=== PATIENT | female | born 1990 | race Caucasian/White ===

== ENCOUNTER 2016-05-20 12:40 | Inpatient (IN) ==
[2016-05-20 14:25] LABS: Bilirubin,Urine Negative (Negative); Blood,Urine Negative (Negative); Clarity,Urine Cloudy (Clear); Color,Urine Yellow (Yellow); Glucose,Urine (UA) Normal (Normal); Ketones,Urine 40 mg/dL (Negative); Leukocyte Esterase,Urine Moderate (Negative); Nitrite,Urine Negative (Negative); PH,Urine 7.5 pH Units (5.0-8.0); Protein,Urine Trace mg/dL (Neg-Trace); Specific Gravity,Urine 1.017 (1.010-1.025); Urobilinogen,Urine Normal (Normal)
[2016-05-20 14:42] LABS: RBC,Urine 0-3 per hpf (0-3)
[2016-05-20 14:43] LABS: Bacteria,Urine Few per hpf (None-Few); Squamous Epithelial Cell,Urine Few per lpf (None-Few)
--- NOTE | 2016-05-20 15:24 | OB/GYN History & Physical ---
Date of Encounter: 05/20/16 Time of Encounter: 15:22 Assessment and Plan (1) 39 weeks gestation of Current visit: Yes Status: Acute Observation for labor Admit if cervical changes discharge home if no cervical changes. History of Present Illness Chief complaint: Contractions HPI: Ms. Mackenzie is a 25 year old female at 39w5d present to labor and delivery with complaints of contractions and bloody discharge. Patient states she has had nausea and vomiting since last night but is feeling better now. Denies LOF. Reports +FM. Patient reports she was dilated 1cm on the . Blood type: A+. Rubella: Immune, Hep B: nonreactive, GBS: Negative. Past Med Surg Social Fam HX - Past Medical History Source: patient Medical history: other Psychiatric history: no psych history - Past Surgical History Surgical History: other (uterus 01/2013) - Social History Smoking Status: Never smoker Smokeless Tobacco Status: No Alcohol use: none Drug use: none Current living situation: Home - Independent Activity Level: Independent ambulation Recent Out of Country Travel Within the Last 8 Weeks: No - Family History Grandmother Living Status: Hx Family Cardiac Disorders: No Hx Family Respiratory Disorders: Yes (lung cancer, copd) Hx Family Cancer: Yes (lung, aunt had lung cancer also-still living) Hx Family GI Disorders: No Hx Family Endocrine Disorder: No Hx Family Neuromuscular Disorders: No Hx Family Neurologic Disorders: No Hx Family HEENT Disorders: No Hx Family Autoimmune Disorders: No Obstetrical History - Pregnancies : 3 Para: 3 Term: 3 : 0 Ab's: 0 Livin Medications and Allergies Caplet 1 tab PO DAILY 04/16/16 [History] Promethazine [Phenergan] 1 tab PO Q6HR PRN 04/16/16 [History] Allergies sulfamethoxazole [From Bactrim] Allergy (Verified 05/20/16 13:01) Anaphylaxis trimethoprim [From Bactrim] Allergy (Verified 05/20/16 13:01) Anaphylaxis Review of System OB - Constitutional Constitutional ROS IM: no chills, no fever(s), no headache(s) - Cardiovascular Cardiovascular: no chest pain, no lightheadedness, no palpitations, no pedal edema - Respiratory Respiratory: no dyspnea - Gastrointestinal Gastrointestinal: nausea, vomiting, no abdominal pain, no constipation, no diarrhea, no heartburn - Genitourinary Genitourinary: vaginal discharge, no abnormal vaginal bleeding, no dysuria, no flank pain, no urinary frequency, no urinary urgency, no vaginal odor, no vaginal pruritis - Neurological Nerological: no dizziness, no syncope Exam - Constitutional Constitutional: well developed, well nourished, no acute distress - HEENT HEENT: Normocephaly, Mucus Membranes Moist - Neck Neck exam: full ROM, supple - Lungs Respiratory exam: CTAB - Cardiovascular Cardiovascular exam: RRR, +S1, +S2 - Abdomen Abdomen: Present: bowel sounds normal, gravid, non tender - Extremities Extremities exam: normal capillary refill, normal inspection Deep Tendon Reflex Grade: 2+ Normal - Vagina Vagina: Present: normal moisture - Cervix Dilation: 3 (per RN) Effacement: 80 Station: -1 - Uterus Uterus exam: Present: normal size, normal contour - Anus/Rectum Anus/Rectum: Present: normal perianal skin - Comments Comments: FHR 125 bpm moderate variability +15x15 accels no decels noted. CAt. 1 tracing. Contractions every 1.5-2.5 min apart Results Abnormal lab results Urine Clarity Cloudy (Clear) A 05/20/16 14:05 Urine Ketones 40 mg/dL (Negative) H 05/20/16 14:05 Ur Leukocyte Esterase Moderate (Negative) H 05/20/16 14:05 Urine Microscopic WBC 3-5 per hpf (0-3) H 05/20/16 14:05 Ur Culture Indicated? YES (NO) A 05/20/16 14:05 All other labs normal. - VTE Reasons for not Prescribing Prophylaxis: Treatment not Indicated - Low risk for VTE
--- NOTE | 2016-05-20 16:13 | OB Labor Progress Note ---
Date of Encounter: 05/20/16 Time of Encounter: 16:10 Labor Progress Note - Subjective Subjective: Patient states contractions are still that she will have the occasional strong 1 but not anything timeable yet. - Cervix Cervix: 4/80/-1 - Heart Tones Heart Tones: heart tones 140s reactive - Hutton Hutton: Contractions every 2-3 minutes - Plan Plan: We will admit the patient we will allow the patient amulet for an hour and we will reassess.
[2016-05-20] MEDS ORDERED: Famotidine 20 MG/2 ML VIAL IVP PRN (16:14)
[2016-05-20] MEDS ORDERED: Naloxone 0.4 MG/ML INJ IVP PRN (16:14)
[2016-05-20] MEDS ORDERED: Ringers Solution, Lactated 1,000 ML IVC SCH (16:15)
[2016-05-20 17:41] LABS: Basophils % 0.3 %; Eosinophils % 0.4 %; Hematocrit 36.8 % (35.3-44.9); Hemoglobin 12.4 g/dL (11.5-15.4); Immature Granulocytes % 0.4 % (0-4); Mean Corpuscular HGB Conc 33.7 g/dL (31.6-35.5); Mean Corpuscular Hemoglobin 30.3 pg (28.0-33.3); Monocytes # 0.7 K/mcL (0.0-1.3); Monocytes % 7.2 %; Neutrophils # 7.2 K/mcL (1.6-8.9); Platelet Count 190 K/mcL (140-400); Red Blood Count 4.09 M/mcL (3.82-4.97); Red Cell Distribution Width 13.4 % (11.5-14.5); Segmented Neutrophils % 71.7 %
--- NOTE | 2016-05-20 19:51 | Anesthesia Evaluation PreOp ---
Date of Encounter: 05/20/16 Time of Encounter: 19:49 - Past History Planned Operation: labor epidural Cardiac History: Denies any Significant Hx Pulmonary History: Denies Any Significant HX NON FOOD RECEIVING CLERK History: Denies Any Significant HX Other Medical History: Denies Any Significant HX Anesthesia History: No Prior Anesthetic Complications, Past Anesthesia (robotic pelvic laparoscopy) : Yes Alcohol Use: none Drug use: none Medications and Allergies Caplet 1 tab PO DAILY 04/16/16 [History] Promethazine [Phenergan] 1 tab PO Q6HR PRN 04/16/16 [History] Allergies sulfamethoxazole [From Bactrim] Allergy (Verified 05/20/16 13:01) Anaphylaxis trimethoprim [From Bactrim] Allergy (Verified 05/20/16 13:01) Anaphylaxis - Meds/Allergy Pre-op Review Medications Reviewed: Yes Allergies Reviewed: Yes Beta Blockers on Current Med List: No Anesthesia Results - Labs 05/20/16 17:15 Anesthesia Exam 152/69, 86, 16, 98% Height: 5'4" NPO (# of Hours): 24 Pain Scale: 6 Pain Scale Used: Numeric (1 - 10) - HEENT Pupil (Motor): Pupils equal Mallampati: II Teeth: Normal Oral Opening: Greater than 3 - NON FOOD RECEIVING CLERK LOC: Oriented NON FOOD RECEIVING CLERK Motor: Normal RUE, Normal LUE, Normal RLE, Normal LLE, Normal Face NON FOOD RECEIVING CLERK Sensory: Normal: RUE, LUE, RLE, LLE, Face - Cardiac Rhythm: Regular Murmur: None - Pulmonary Breath Sounds: bilateral Clear Respiratory Effort: Symmetrical Anesthesia Assess/Plan ASA Score: 2 Modified [place] Scale for Level of Consciousness: Cooperative, oriented, and tranquil Anesthetic Plan: Regional Monitoring Plan: Standard Monitors
[2016-05-20] MEDS ORDERED: *HR* FentaNYL (PF) 100 MCG/2 ML VIAL EP ONE (19:54)
[2016-05-20] MEDS ORDERED: Bupivacaine-MPF 0.25% 10 ML VIAL EP ONE (19:54)
[2016-05-20] MEDS ORDERED: Epidural Premix (fent/bupiv) 110 ML EP SCH (20:00)
--- NOTE | 2016-05-20 20:25 | OB Labor Progress Note ---
Date of Encounter: 05/20/16 Time of Encounter: 20:25 Labor Progress Note - Subjective Subjective: Patient still tolerating contractions not ready for epidural yet - Cervix Cervix: 5/80/-2 AROM large amt clear fluid - Heart Tones Heart Tones: heart tones 140s reactive - Roland Roland: Contractions every 2-3 minutes - Plan Plan: Continue current care will get epidural when uncomfortable plan is to anticipate vaginal delivery
[2016-05-20] MEDS ORDERED: *HR* FentaNYL (PF) 100 MCG/2 ML VIAL ONE (20:45)
[2016-05-20] MEDS ORDERED: Bupivacaine-MPF 0.25% 10 ML VIAL ONE (20:45)
[2016-05-20] MEDS ORDERED: Epidural Premix (fent/bupiv) 110 ML EP ONE (20:46)
--- NOTE | 2016-05-20 21:59 | Anesthesia Procedures ---
Date of Encounter: 05/20/16 Time of Encounter: 21:10 Procedures: Anesthesia - Epidural/Spinal Patient ID/Chart reviewed: Yes Patient examined: Yes OB Eval: Gestational age: 39 OB Eval: : 3 OB Eval: Hx Para: 4 OB Eval: Dilated at (cm): 6 OB Eval: Contractions: Non-stressed pattern Consent Obtained: Yes Supplemental Oxygen: None/Room Air Site Prep: Aseptic Technique, Sterile prep and drape, Povidone-Iodine 1% Patient position: upright Local Anesthetic: Lidocaine 1% Amount of Local Anesthetic used: 6 Touhy Needle Gauge: 18 Touhy Needle Depth (cm): 7 Catheter Depth at Skin (cm): 18 Test Dose (1.5% Lido + Epi): Volume given (mls): 3 Test Dose Result: Negative Loading Dose: 0.25% Marcaine (mls): 8 Loading Dose: Fentanyl (mcg): 100 Loading Dose Administered: Thru Catheter Infusion Med: 0.125% Bupivacaine w/ 2 mcg/ml Fentanyl Infusion Rate (mls/hr): [address]: Tegaderm, Tape Interspace Used: L2-L3 Loss of Resistance (LAKSHMI): Yes Blood: No CSF: No Paresthesia: No Procedure: Attempted first at L3-4, easily entered epidural space but unable to thread catheter. Proceeded to L2-3, placed catheter with ease. Vitals + FHT's: 3 Vital Signs Time 21090 5 2130 2135 2140 2145 2150 BP 172/78 147/71 143/63 140/67 136/63 139/66 134/71 131/70 123/60 Pulse 110 70 97 69 88 100 96 78 82 FHTs 140 140 140 140 140 140 140 140 140
[2016-05-20] MEDS ORDERED: Oxytocin 20 units/ LR 1000 mL 20 UNIT/1,000 ML BAG IVC ONE (23:37)
[2016-05-21] MEDS ORDERED: Lidocaine 1% 20 ML MDV ONE (01:57)
[2016-05-21] MEDS ORDERED: Acetaminophen 325 MG TABLET PO PRN ×2 (02:04→04:23)
--- NOTE | 2016-05-21 02:22 | OB/GYN Procedure Note ---
Delivery - Delivery Date: 05/21/16 Provider: Ian Dubois Intrapartum events: none Delivery induction: none Delivery augmentation: rupture of membranes Delivery monitor: external FHT, external uterine Anesthesia: epidural Estimated Blood Loss: 100 - (s) Infant A Delivery Date: 05/21/16 Infant Delivery Time: 01:54 Presentation: vertex Position: PRANAV Route of delivery: Gender: Male Viability: Viable Pounds: 8 Ounces: 9 Weight Gram: 3.88 kg at 1 minute: 8 at 5 mins: 9 Shoulder Dystocia: not encountered Specimens collected: cord blood Placenta: spontaneous Cord: 3 umbilical vessels - Repair Episiotomy: none Laceration Description: Perineal - 2nd Degree - Complications Delivery complications: none Delivery comments: Patient is a 25-year-old 3 para 2002 at 39-5/7 weeks who presented to labor and delivery complaining of contractions. Patient was 1-2 cm in the office but on labor and delivery she was 3 and progressed to 4-5 cm. She was finally admitted patient received an epidural when she was 6 cm after artificial rupture membranes. Patient progressed appropriately started having some variable decelerations but was able to get to complete pushed for a short period of time delivering a viable male infant in right occiput anterior presentation and 0 154. There was no nuchal cord, no meconium, was bulb suctioned on the abdomen, Apgars were 8 at 1 minute, 9 at 5 minutes, weight was 8 lbs. 9 oz. Placenta was then delivered spontaneously with a three- vessel cord, [employer] executive director Dr. Dubois, list of first job ideas Sara Harnett OMS3 , anesthesia epidural, estimated blood loss 100 mL. Patient had a second-degree perineal laceration repaired with 3-0 Vicryl in usual fashion cervix and vagina was visualized intact. She will be observed 2 hours before being taken floor. - Disposition Mom disposition: stable in LDR disposition: stable in LDR
[2016-05-21] MEDS ORDERED: Oxytocin 20 units/ LR 1000 mL 20 UNIT/1,000 ML BAG IVC ONE ×2 (04:18→04:23)
[2016-05-21] MEDS ORDERED: Rho Immune Globulin 1,500 UNIT SYRINGE IM PRN (04:23)
[2016-05-21] MEDS ORDERED: Oxytocin 20 units/ LR 1000 mL 20 UNIT/1,000 ML BAG IV SCH (04:23)
[2016-05-21] MEDS ORDERED: Measles/Mumps/Rubella Vacc 0.5 ML VIAL SQ PRN (04:23)
[2016-05-21] MEDS: Ibuprofen 600 MG TABLET PO PRN ×2 (08:27→21:11)
[2016-05-21] MEDS: Prenatal Vit/FA 1 EACH TABLET PO SCH (08:27)
[2016-05-21] MEDS ORDERED: Prenatal Vit/FA 1 EACH TABLET PO SCH (09:00)
[2016-05-22 04:29] LABS: Basophils % 0.4 %; Eosinophils # 0.2 K/mcL (0.0-0.6); Eosinophils % 1.5 %; Hematocrit 30.8 % (35.3-44.9); Immature Granulocytes % 0.4 % (0-4); Lymphocytes # 3.1 K/mcL (0.6-4.6); Mean Corpuscular HGB Conc 32.8 g/dL (31.6-35.5); Mean Corpuscular Hemoglobin 30.1 pg (28.0-33.3); Mean Corpuscular Volume 91.7 fL (83.0-100.0); Mean Platelet Volume 11.6 fL (9.4-12.4); Monocytes % 10.4 %; Neutrophils # 5.6 K/mcL (1.6-8.9); Platelet Count 155 K/mcL (140-400); Red Blood Count 3.36 M/mcL (3.82-4.97); Red Cell Distribution Width 13.7 % (11.5-14.5); Segmented Neutrophils % 56.3 %
[2016-05-22 04:35] LABS: Hemoglobin 10.1 g/dL (11.5-15.4)
--- NOTE | 2016-05-22 08:50 | Discharge Summary ---
Date of Encounter: 05/22/16 Time of Encounter: 08:48 - Discharge Diagnosis (1) 39 weeks gestation of Priority: Secondary Status: Acute (2) Status post vaginal delivery Priority: Primary Status: Acute Comments: Continue routine care discharge home today follow up in 4-6 weeks - Discharge Medications Prescriptions: Ibuprofen [Motrin] 600 mg PO Q6HR PRN #60 tablet PRN Reason: Cramping Home Medications: Caplet 1 tab PO DAILY 04/16/16 [History] Ibuprofen [Motrin] 600 mg PO Q6HR PRN #60 tablet 05/22/16 [Rx] Vit/FA 1 each PO DAILY tablet 05/22/16 [Rx] Allergies/Adverse Reactions: Allergies sulfamethoxazole [From Bactrim] Allergy (Verified 05/20/16 13:01) Anaphylaxis trimethoprim [From Bactrim] Allergy (Verified 05/20/16 13:01) Anaphylaxis Data Procedures and tests throughout hospitalization: Laboratory Tests 05/20/16 05/20/16 05/22/16 14:05 17:15 04:16 WBC 10.0 9.9 RBC 4.09 3.36 L Hgb 12.4 10.1 L D Hct 36.8 30.8 L MCV 90.0 91.7 MCH 30.3 30.1 MCHC 33.7 32.8 RDW 13.4 13.7 Plt Count 190 155 MPV 12.0 11.6 Immature Gran % 0.4 0.4 Seg Neutrophils % 71.7 56.3 Lymphocytes % 20.0 31.0 Monocytes % 7.2 10.4 Eosinophils % 0.4 1.5 Basophils % 0.3 0.4 Neutrophils # 7.2 5.6 Lymphocytes # 2.0 3.1 Monocytes # 0.7 1.0 Eosinophils # 0.0 0.2 Basophils # 0.0 0.0 Urine Color Yellow Urine Clarity Cloudy A Urine pH 7.5 Ur Specific [place] 1.017 Urine Protein Trace Urine Glucose (UA) Normal Urine Ketones 40 H Urine Blood Negative Urine Nitrite Negative Urine Bilirubin Negative Urine Urobilinogen Normal Ur Leukocyte Esterase Moderate H Urine Microscopic RBC 0-3 Urine Microscopic WBC 3-5 H Ur Squamous Epith Cells Few Urine Bacteria Few Ur Culture Indicated? YES A Labs on day of discharge: Labs from last 24 hours 05/22/16 04:16 WBC 9.9 RBC 3.36 L Hgb 10.1 L D Hct 30.8 L MCV 91.7 MCH 30.1 MCHC 32.8 RDW 13.7 Plt Count 155 MPV 11.6 Immature Gran % 0.4 Seg Neutrophils % 56.3 Lymphocytes % 31.0 Monocytes % 10.4 Eosinophils % 1.5 Basophils % 0.4 Neutrophils # 5.6 Lymphocytes # 3.1 Monocytes # 1.0 Eosinophils # 0.2 Basophils # 0.0 Date of admission: 05/20/16 12:40 Primary care physician: PCP NO Consults: 05/21/16 04:23 Consult to Scientific Informatics Project Leader [CONS] Routine Comment: Vaginal delivery, consult needed Discharging clinician: Sushma Phillips Anticipated date of discharge: 05/22/16 - Patient Status Disposition: Home, Self-Care Condition: Good Functional capacity at discharge: independent ambulation - Discharge Instructions Follow Up With: NO,PCP [Primary Care Provider] - Gary Sevilla MD [Partnered Physician] - (June 20, 2016 @ 11:20 am) - Diet and Activity Activity: increase activity as tolerated Diet: regular diet Hospital Course Reason for admission: active labor Delivery: Episiotomy: none Laceration: 2nd degree Other procedures: none complications: none Discharge diagnosis: IUP at term delivered [place] baby: male (bottle feeding) Time Attestation: Total time spent providing and/or coordinating discharge services: Time Spent: Less than 30 minutes Exam - Constitutional Vitals: Temp Pulse Resp BP Pulse Ox 97.9 F 76 16 120/67 97 05/21/16 20:00 05/21/16 20:00 05/21/16 21:11 05/21/16 20:00 05/21/16 20:00 General appearance IM: A&O X 3, pleasant, answers questions appropriately - Respiratory Respiratory exam: Present: CTAB - Cardiovascular Cardiovascular exam IM: Present: RRR, +S1, +S2 - GI/Abdominal GI/Abdominal exam IM: normal bowel sounds - Uterine Tone: Firm Uterus Position: 1 Finger Below Umbilicus, Midline - Extremities Exam Extremities exam IM: Present: normal capillary refill, normal inspection, pedal edema (1+) - Neurological Exam Neurological exam: oriented X3, reflexes normal
[2016-05-22] MEDS: Prenatal Vit/FA 1 EACH TABLET PO SCH (08:56)
[2016-05-22 09:12] VITALS: BP 122/79
== END 2016-05-22 16:10 | disposition home or self-care (01) | DRG 560 ==
LOC: 1NENULAB → OBSVTOIN 12:40 → 1NENULAB 22:56 → 1NENUOBS 05-21 04:16
PROVIDERS: ADMIT Obstetrics & Gynecology; ATTEND Obstetrics & Gynecology

== ENCOUNTER 2016-08-14 21:00 | Observation (INO) ==
[2016-08-14 21:59] LABS: Bilirubin,Urine Negative (Negative); Blood,Urine Negative (Negative); Clarity,Urine Clear (Clear); Color,Urine Yellow (Yellow); Glucose,Urine (UA) Normal (Normal); Ketones,Urine Negative (Negative); Leukocyte Esterase,Urine Small (Negative); Nitrite,Urine Negative (Negative); PH,Urine 6.5 pH Units (5.0-8.0); Protein,Urine Trace mg/dL (Neg-Trace); Specific Gravity,Urine 1.028 (1.010-1.025); Urobilinogen,Urine Normal (Normal)
[2016-08-14 22:02] LABS: Bacteria,Urine Few per hpf (None-Few); Hyaline Casts,Urine None Seen per lpf (None-Few); RBC,Urine 0-3 per hpf (0-3); Squamous Epithelial Cell,Urine Many per lpf (None-Few)
[2016-08-14 22:39] LABS: Basophils % 0.3 %; Eosinophils # 0.1 K/mcL (0.0-0.6); Eosinophils % 1.2 %; Hematocrit 38.7 % (35.3-44.9); Hemoglobin 12.9 g/dL (11.5-15.4); Immature Granulocytes % 0.1 % (0-4); Lymphocytes # 2.9 K/mcL (0.6-4.6); Lymphocytes % 32.2 %; Mean Corpuscular HGB Conc 33.3 g/dL (31.6-35.5); Mean Corpuscular Hemoglobin 30.1 pg (28.0-33.3); Mean Corpuscular Volume 90.2 fL (83.0-100.0); Mean Platelet Volume 10.8 fL (9.4-12.4); Monocytes # 0.7 K/mcL (0.0-1.3); Monocytes % 7.8 %; Neutrophils # 5.2 K/mcL (1.6-8.9); Platelet Count 267 K/mcL (140-400); Red Blood Count 4.29 M/mcL (3.82-4.97); Red Cell Distribution Width 12.9 % (11.5-14.5); Segmented Neutrophils % 58.4 %
[2016-08-14 22:56] LABS: Alanine Aminotransferase 23 Units/L (0-55); Albumin 3.9 g/dL (3.5-5.0); Albumin/Globulin Ratio 1.1 (1.1-2.2); Alkaline Phosphatase 105 Units/L (38-126); Aspartate Amino Transferase 20 Units/L (5-34); BUN/Creatinine Ratio 18 (6-26); Bilirubin,Direct 0.2 mg/dL (0.0-0.5); Bilirubin,Indirect 0.2 mg/dL (0.0-1.2); Bilirubin,Total 0.4 mg/dL (0.2-1.2); Blood Urea Nitrogen 14 mg/dL (7-20); Calcium 9.2 mg/dL (8.6-10.8); Carbon Dioxide 23 mEq/L (19-29); Chloride 108 mEq/L (98-109); Globulin 3.6 g/dL (2.4-3.5); Glucose 95 mg/dL (70-99); Lipase 245 Units/L (8-78); Osmolality,Calculated 292 (280-300); Potassium 3.9 mEq/L (3.5-4.5); Sodium 141 mEq/L (136-145); Total Protein 7.5 g/dL (6.0-8.3); eGFR For African Americans > 60 (> 60); eGFR For Non-African Americans > 60 (> 60)
[2016-08-14 23:12] LABS: C-Reactive Protein 2 mg/L (Less than 5)
--- NOTE | 2016-08-14 23:25 | Emergency Department Note ---
Disposition Clinical Impression: Upper abdominal pain, Vomiting, Elevated lipase, UTI (urinary tract infection) , Gallstone Disposition: Admitted As Inpatient Referrals: NO,PCP [Primary Care Provider] - Forms: ED Satisfaction Letter, Work/School Release General Adult HPI - General Chief complaint: ED Abdominal Pain Stated complaint: Stomach Ulcer/NV Time Seen by Provider: 08/14/16 22:52 Source: patient - History of Present Illness HPI Narrative: 26-year-old female reports emergency department complaining of midepigastric pain and recurrent vomiting. The patient was seen at [facility] about a month ago was evaluated and discharged. She was seen here a few weeks ago and the [facility] evaluated discharge. The patient reports she has persistent midepigastric abdominal pain sometimes in her right upper quadrant has had recurrent nonbloody emesis. There is no history of diarrhea vaginal discharge or bleeding. No flank pain or bloody urine reported. The patient reports she has had UTIs in the past but his never had abdominal surgery there is no history of previous kidney stones. The patient reports the pain is under her ribs up into her chest. There is no history of coughing coughing up blood bleeding of any sort. The patient has no history of previous coronary disease or primary lung disease or malignancy PE or DVT no leg swelling or pain or syncope. There is no history of rash. No trauma. Pain Scale: 0 - Related Data Home Medications Medication Instructions Recorded Confirmed Caplet 1 tab PO DAILY 04/16/16 05/20/16 Previous Rx's Medication Instructions Recorded Ibuprofen [Motrin] 600 mg PO Q6HR PRN #60 tablet 05/22/16 Vit/FA 1 each PO DAILY tablet 05/22/16 Sucralfate [Carafate] 1 gm PO QIDAC #30 tablet 08/03/16 Allergies Allergy/AdvReac Type Severity Reaction Status Date / Time sulfamethoxazole Allergy Anaphylaxis Verified 08/14/16 21:19 [From Bactrim] trimethoprim [From Bactrim] Allergy Anaphylaxis Verified 08/14/16 21:19 All systems ED: reviewed and negative except as stated. Past Medical History - Past Medical History Medical history: Reports: GERD Surgical history: Reports: non-contributory, other (uterus 01/2013) Psychiatric history: Reports: no psych history - Social History Smoking Status: Never smoker Smokeless Tobacco Status: No Alcohol use: Reports: none Drug use: Reports: none Physical Exam - General Limitations: no limitations General appearance: alert, in no apparent distress - Head Head exam: atraumatic - Eye Eye exam: Present: normal appearance, PERRL, EOMI - ENT ENT exam: normal exam, normal oropharynx, mucous membranes moist, TM's normal bilaterally, normal external ear exam - Neck Neck exam: Present: normal inspection, full ROM, trachea midline - Chest Chest inspection: Present: symmetric chest wall rise. Absent: tenderness - Respiratory Respiratory exam: Present: normal lung sounds bilaterally. Absent: respiratory distress, prolonged expiratory phase - Cardiovascular Cardiovascular exam: Present: regular rate, normal rhythm, normal heart sounds - Abdominal Exam Abdominal exam: Present: soft, tenderness, normal bowel sounds. Absent: distention, guarding, rebound, rigidity, trauma, Myers's sign, pulsatile mass Abdominal tenderness: Present: RUQ, epigastrium, moderate - Extremities Exam Extremities exam: Present: normal inspection, full ROM, normal capillary refill. Absent: tenderness, pedal edema, joint swelling, calf tenderness - Expanded Lower Extremity Exam Neurovascular/Tendon exam: Present: normal capillary refill. Absent: motor deficit, sensory deficit, tendon deficit, extremity cold to touch, pallor - Back Exam Back exam: Present: normal inspection, full ROM. Absent: tenderness, CVA tenderness (R), CVA tenderness (L), vertebral tenderness - Neurological Exam Neurological exam: Present: alert, oriented X3, CN II-XII intact. Absent: motor sensory deficit - Psychiatric Psychiatric exam: Present: normal affect, normal mood - Skin Skin exam: Present: warm, dry, intact, normal color. Absent: rash, cyanosis, diaphoresis, erythema, pallor, mottled Course Vital Signs Temperature 99 F 08/14/16 21:15 Pulse Rate 73 08/14/16 21:15 Respiratory Rate 20 08/14/16 21:15 Blood Pressure 156/85 08/14/16 21:15 O2 Sat by Pulse Oximetry 98 08/14/16 21:15 Temperature 99 F 08/14/16 21:15 Pulse Rate 91 08/15/16 00:49 Respiratory Rate 16 08/14/16 22:59 Blood Pressure 130/65 08/15/16 00:49 O2 Sat by Pulse Oximetry 96 08/15/16 00:49 Oxygen Delivery Oxygen Delivery Room Air Medical Decision Making - [facility] Narrative Medical decision making narrative: This is the patient's third visit to an emergency department for midepigastric abdominal pain with recurrent vomiting. Her CT scan demonstrates gallstones. She also has an elevated lipase. The patient has palpable midepigastric pain as well as some right upper abdominal pain. The patient reports that her Carafate as not been helpful. There is no history of vomiting blood. She is very concerned about her recurrent pain and vomiting. Based on the patient's third visit to an ED in the last 30 days, and elevated lipase, findings of gallstones on CT scan, persistent abdominal pain, I thought it be appropriate to admit the patient for observation and further evaluation. I reviewed the case with the hospitalist on-call. - Lab Data Lab results reviewed: Yes I reviewed the patient's lab results. Result diagrams: 08/14/16 22:24 08/14/16 22:24 Lab Results 08/14/16 08/14/16 08/14/16 Range/Units 21:00 21:00 22:24 WBC 8.9 (4.3-11.1) K/mcL RBC 4.29 (3.82-4.97) M/mcL Hgb 12.9 (11.5-15.4) g/dL Hct 38.7 (35.3-44.9) % MCV 90.2 (83.0-100.0) fL MCH 30.1 (28.0-33.3) pg MCHC 33.3 (31.6-35.5) g/dL RDW 12.9 (11.5-14.5) % Plt Count 267 (140-400) K/mcL MPV 10.8 (9.4-12.4) fL Immature Gran % 0.1 (0-4) % Seg Neutrophils % 58.4 % Lymphocytes % 32.2 % Monocytes % 7.8 % Eosinophils % 1.2 % Basophils % 0.3 % Neutrophils # 5.2 (1.6-8.9) K/mcL Lymphocytes # 2.9 (0.6-4.6) K/mcL Monocytes # 0.7 (0.0-1.3) K/mcL Eosinophils # 0.1 (0.0-0.6) K/mcL Basophils # 0.0 (0.0-0.2) K/mcL Sodium (136-145) mEq/L Potassium (3.5-4.5) mEq/L Chloride (98-109) mEq/L Carbon Dioxide (19-29) mEq/L BUN (7-20) mg/dL Creatinine (0.57-1.11) mg/dL Est GFR ( Amer) (> 60) Est GFR (Non-Af Amer) (> 60) BUN/Creatinine Ratio (6-26) Glucose (70-99) mg/dL Calculated Osmolality (280-300) Calcium (8.6-10.8) mg/dL Total Bilirubin (0.2-1.2) mg/dL Direct Bilirubin (0.0-0.5) mg/dL Indirect Bilirubin (0.0-1.2) mg/dL AST (5-34) Units/L ALT (0-55) Units/L Alkaline Phosphatase (38-126) Units/L C-Reactive Protein (Less than 5) mg/L Serum Total Protein (6.0-8.3) g/dL Albumin (3.5-5.0) g/dL Globulin (2.4-3.5) g/dL Albumin/Globulin Ratio (1.1-2.2) Lipase (8-78) Units/L Urine Color Yellow (Yellow) Urine Clarity Clear (Clear) Urine pH 6.5 (5.0-8.0) pH Units Ur Specific [place] 1.028 H (1.010-1.025) Urine Protein Trace (Neg-Trace) mg/dL Urine Glucose (UA) Normal (Normal) mg/dL Urine Ketones Negative (Negative) mg/dL Urine Blood Negative (Negative) Urine Nitrite Negative (Negative) Urine Bilirubin Negative (Negative) Urine Urobilinogen Normal (Normal) mg/dL Ur Leukocyte Esterase Small H (Negative) Urine Microscopic RBC 0-3 (0-3) per hpf Urine Microscopic WBC 5-15 H (0-3) per hpf Ur Squamous Epith Cells Many H (None-Few) per lpf Urine Bacteria Few (None-Few) per hpf Hyaline Casts None Seen (None-Few) per lpf Ur Culture Indicated? YES A (NO) Urine Test Negative (Negative) 08/14/16 Range/Units 22:24 WBC (4.3-11.1) K/mcL RBC (3.82-4.97) M/mcL Hgb (11.5-15.4) g/dL Hct (35.3-44.9) % MCV (83.0-100.0) fL MCH (28.0-33.3) pg MCHC (31.6-35.5) g/dL RDW (11.5-14.5) % Plt Count (140-400) K/mcL MPV (9.4-12.4) fL Immature Gran % (0-4) % Seg Neutrophils % % Lymphocytes % % Monocytes % % Eosinophils % % Basophils % % Neutrophils # (1.6-8.9) K/mcL Lymphocytes # (0.6-4.6) K/mcL Monocytes # (0.0-1.3) K/mcL Eosinophils # (0.0-0.6) K/mcL Basophils # (0.0-0.2) K/mcL Sodium 141 (136-145) mEq/L Potassium 3.9 (3.5-4.5) mEq/L Chloride 108 (98-109) mEq/L Carbon Dioxide 23 (19-29) mEq/L BUN 14 (7-20) mg/dL Creatinine 0.76 (0.57-1.11) mg/dL Est GFR ( Amer) > 60 (> 60) Est GFR (Non-Af Amer) > 60 (> 60) BUN/Creatinine Ratio 18 (6-26) Glucose 95 (70-99) mg/dL Calculated Osmolality 292 (280-300) Calcium 9.2 (8.6-10.8) mg/dL Total Bilirubin 0.4 (0.2-1.2) mg/dL Direct Bilirubin 0.2 (0.0-0.5) mg/dL Indirect Bilirubin 0.2 (0.0-1.2) mg/dL AST 20 (5-34) Units/L ALT 23 (0-55) Units/L Alkaline Phosphatase 105 (38-126) Units/L C-Reactive Protein 2 (Less than 5) mg/L Serum Total Protein 7.5 (6.0-8.3) g/dL Albumin 3.9 (3.5-5.0) g/dL Globulin 3.6 H (2.4-3.5) g/dL Albumin/Globulin Ratio 1.1 (1.1-2.2) Lipase 245 H (8-78) Units/L Urine Color (Yellow) Urine Clarity (Clear) Urine pH (5.0-8.0) pH Units Ur Specific [place] (1.010-1.025) Urine Protein (Neg-Trace) mg/dL Urine Glucose (UA) (Normal) mg/dL Urine Ketones (Negative) mg/dL Urine Blood (Negative) Urine Nitrite (Negative) Urine Bilirubin (Negative) Urine Urobilinogen (Normal) mg/dL Ur Leukocyte Esterase (Negative) Urine Microscopic RBC (0-3) per hpf Urine Microscopic WBC (0-3) per hpf Ur Squamous Epith Cells (None-Few) per lpf Urine Bacteria (None-Few) per hpf Hyaline Casts (None-Few) per lpf Ur Culture Indicated? (NO) Urine Test (Negative)
[2016-08-15] MEDS ORDERED: 0.9 % Sodium Chloride 1,000 ML IVC ONE (01:19)
[2016-08-15] MEDS ORDERED: Acetaminophen 325 MG TABLET PO PRN ×2 (02:14→19:36)
[2016-08-15] MEDS ORDERED: Naloxone 0.4 MG/ML INJ IVP PRN ×2 (02:14→19:36)
[2016-08-15] MEDS ORDERED: Ondansetron 4 MG/2 ML VIAL IVP PRN ×2 (02:14→19:36)
[2016-08-15] MEDS ORDERED: *HR* Promethazine 25 MG/ML VIAL IVP PRN ×2 (02:14→17:57)
[2016-08-15] MEDS ORDERED: *HR* HYDROcodone/Acet 5/325 mg TABLET PO PRN (02:14)
--- NOTE | 2016-08-15 02:14 | Internal Med History&Physical ---
<José Miguel Antonio - Last Filed: 08/15/16 04:51> Date of Encounter: 08/15/16 Time of Encounter: 01:55 Assessment and Plan (1) Pancreatitis Current visit: Yes Status: Acute Patient appears to have acute, mild pancreatitis with slight elevation in serum lipase and symptoms concerning for pancreatitis. The patient denies alcohol usage and CT finding showing gallstones and gallbladder, concern is she is having recurrent episodes of gallstones being lodged in the common bile duct causing pancreatitis. These episodes last several days and then resolve for returning. This is her third episode in a month. BUN is normal, suggesting less severity pancreatitis. RANSOM = 0. ALTURAS II = 0. We will start patient on clear liquid diet per patient tolerance Zofran or Phenergan as needed for patient nausea Pain control with Tylenol, [place], and morphine Continue Carafate Pantoprazole daily Supplemental fluids at 100 mL an hour until patient taking greater by mouth Consultation to Gen. surgery for assistance in management and patient recurrent symptoms given gallstones present gallbladder Qualifiers: Chronicity: acute Pancreatitis type: biliary Acute pancreatitis complication: no infection or necrosis Qualified Code(s): K85.10 - Biliary acute pancreatitis without necrosis or infection (2) Cholelithiasis Current visit: Yes Status: Acute Patient found to have gallstones from abdominal CT examination. No evidence of cholecystitis currently. Patient gallstones possibly contributory to current abdominal pain, nausea, vomiting as well as pancreatitis. We will consult general surgery for assistance in future care planning given recent recurrent episodes of likely gallstone impaction Qualifiers: Cholelithiasis location: gallbladder Cholecystitis presence: without cholecystitis Biliary obstruction: without biliary obstruction Qualified Code(s): K80.20 - Calculus of gallbladder without cholecystitis without obstruction (3) DVT prophylaxis Current visit: Yes Status: Acute Encouraged patient ambulation Internal Medicine - H&P: HPI Chief complaint: Stomach Pain, Nausea, vomiting Admitted From: Home Plans for Post Hospital Care: Home History of present illness: Ms. Mackenzie is a 26 year old female with recent medical history of having had a baby almost 3 months ago who presents to [facility] today because of continued nausea , vomiting, and stomach pain. She reports that this newest episode of nausea, vomiting, and abdominal pain has been going on since Friday and had not been improving (but had also not been worsening) so she had finally decided to come to the hospital. She states that her first episode was 1 month ago, she went to the ED in [place] and was told she had UTI and gastritis for which she was given Zantac. She was given Her symptoms resolved, but she she returned to the hospital ([facility] this time) 2 weeks later with similar symptoms and was told she had GERD and given carafate. She reports that this helped for a little bit, but she had return of her symptoms. She states that this most recent episode of symptoms began Friday and has been relatively constant since that point in time. She reports that the abdominal pain that she had been having is up to a 10/10 in severity and is generally located in his epigastric-RUQ, though it radiates to the left side of her abdomen and back as well. Warmth generally makes it better and laying flat makes it worse. In this same time period she has had nausea and vomiting, she originally thought that it was associated with food, but she has continued to have the symptoms regardless of when she eats. She states that it last near constantly. She describes the contents of her emesis to be stomach contents, regurgitated food, and stomach acid. She denies having hematemesis. She denies diarrhea, constipation, or blood in her stool. During the episodes of vomiting she feels as if she has diaphoresis and chills. She reports that she has not had any sick contacts recently and states that she has been relatively healthy, though she does state that she has been having some fever and chills. She denies CP, shortness of breath, lightheadedness/ dizziness. Past Med Surg Social Fam HX - Past Medical History Medical history: GERD Psychiatric history: no psych history - Past Surgical History Surgical History: non-contributory, other (uterus 01/2013) - Social History Smoking Status: Never smoker Smokeless Tobacco Status: No Alcohol use: none Drug use: none - Family History Grandmother Living Status: Hx Family Cardiac Disorders: No Hx Family Respiratory Disorders: Yes (lung cancer, copd) Hx Family Cancer: Yes (lung, aunt had lung cancer also-still living) Hx Family GI Disorders: No Hx Family Endocrine Disorder: No Hx Family Neuromuscular Disorders: No Hx Family Neurologic Disorders: No Hx Family HEENT Disorders: No Hx Family Autoimmune Disorders: No Internal Medicine - H&P: Meds Sucralfate [Carafate] 1 gm PO QIDAC #30 tablet 08/03/16 [Rx] Cephalexin [Keflex] 500 mg PO TID #15 capsule 08/15/16 [Rx] Omeprazole [PriLOSEC] 20 mg PO DAILY 08/15/16 [History] Ondansetron HCl [Zofran] 4 mg PO [id number] PRN 08/15/16 [History] Ranitidine HCl [Zantac] 150 mg PO DAILY PRN 08/15/16 [History] Allergies sulfamethoxazole [From Bactrim] Allergy (Verified 08/14/16 21:19) Anaphylaxis trimethoprim [From Bactrim] Allergy (Verified 08/14/16 21:19) Anaphylaxis - Constitutional Constitutional: chills, fever(s), no anorexia, no excessive sweating, no weakness - EENT Eyes: no change in vision, no photophobia Nose, mouth and throat: sore throat - Cardiovascular Cardiovascular ROS IM: no chest pain, no diaphoresis, no dyspnea, no lightheadedness, no palpitations, no syncope - Respiratory Respiratory: no cough, no dyspnea, no wheezing, no excessive phlegm production - Gastrointestinal Gastrointestinal: as per HPI, abdominal pain, constipation, nausea, vomiting, no diarrhea, no hematemesis, no hematochezia, no melena - Genitourinary Genitourinary: no dysuria, no hematuria - Musculoskeletal Musculoskeletal ROS IM: no numbness, no tingling - Integumentary Integumentary IM: no rash, no unusual bruising - Neurological Neurological ROS: no confusion, no convulsions, no focal weakness, no numbness, no tingling, no tremor(s) - Constitutional Vitals: Temp Pulse Resp BP Pulse Ox 99 F 91 18 130/65 96 08/14/16 21:15 08/15/16 00:49 08/15/16 01:56 08/15/16 01:56 08/15/16 00:49 Exam: General: Cooperative, pleasant, no acute distress, alert and oriented 3, answers questions appropriately Head: Normocephalic, atraumatic Eye: Conjunctiva pink, sclera anicteric, EOMI, PERRL Neck: Supple, trachea midline, mucosa moist, no erythema or exudates in oropharynx Respiratory: No accessory muscle usage, clear to auscultation bilaterally, no wheezes/rhonchi/rales appreciated Cardiovascular: Regular rate and rhythm, S1 and S2 present, no murmurs/rubs/ gallops/clicks appreciated GI/abdominal: Nondistended, mild tenderness to palpation in epigastric and right upper quadrant, Myers sign negative, McBurney point negative, no guarding , no rebound, soft, normal bowel sounds, no peritoneal signs, no discoloration noted and flanks Extremities: No calf tenderness, noncyanotic, no pedal edema appreciated, warm, lower extremity pulses palpable and symmetrical Neurological: Alert and oriented 3, no facial droop, no focal deficits Skin: Dry, intact, normal color Internal Med - H&P Results - Labs CBC & Chem 7: 08/14/16 22:24 08/14/16 22:24 - Impressions ITS Impressions Abdomen/Pelvis CT 08/15/16 23:26 IMPRESSION: 1. No acute intra-abdominal or intrapelvic process. 2. Normal pancreas, without CT evidence of pancreatitis. 3. Cholelithiasis. D/ / Diogo Stallworth MD / Diogo Stallworth MD Interpreting Provider: Diogo Stallworth MD <Chan Shafer - Last Filed: 08/15/16 05:25> Date of Encounter: 08/15/16 Internal Medicine - H&P: HPI History of present illness: Ms. Mackenzie is a 26 year old female All Systems PM: A 10-system review of systems was performed and is negative for pertinent findings except as documented above in the HPI. - Constitutional Vitals: Temp Pulse Resp BP Pulse Ox 97.8 F 59 15 119/82 100 08/15/16 02:42 08/15/16 02:42 08/15/16 02:42 08/15/16 02:42 08/15/16 02:42 Internal Med - H&P Results - Labs CBC & Chem 7: 08/14/16 22:24 08/15/16 03:55 - Impressions ITS Impressions Abdomen/Pelvis CT 08/15/16 23:26 IMPRESSION: 1. No acute intra-abdominal or intrapelvic process. 2. Normal pancreas, without CT evidence of pancreatitis. 3. Cholelithiasis. D/ / Diogo Stallworth MD / Diogo Stallworth MD Interpreting Provider: Diogo Stallworth MD - Attending Attestation I examined this patient and my medical decision-making was reviewed with the DIRECTOR SCRIPT/PA/Advanced Practice Nurse/Resident Physician. I agree with the documented findings, disposition and treatment plan as described except to the extent set forth below. Acute Mild pancreatitis. Continue with IV fluids and pain control.
[2016-08-15] MEDS: 0.9 % Sodium Chloride 1,000 ML IVC SCH ×3 (03:50→20:41)
[2016-08-15] MEDS ORDERED: *HR* Morphine 2 MG/ML SYRINGE IVP PRN ×2 (04:49→19:36)
[2016-08-15 05:04] LABS: BUN/Creatinine Ratio 17 (6-26); Blood Urea Nitrogen 11 mg/dL (7-20); Carbon Dioxide 23 mEq/L (19-29); Chloride 110 mEq/L (98-109); Glucose 90 mg/dL (70-99); Osmolality,Calculated 289 (280-300); Potassium 3.3 mEq/L (3.5-4.5); Sodium 140 mEq/L (136-145); eGFR For African Americans > 60 (> 60); eGFR For Non-African Americans > 60 (> 60)
[2016-08-15] MEDS: Sucralfate 1 GM TABLET PO SCH ×2 (07:52→20:41)
--- NOTE | 2016-08-15 08:40 | General Surgery Consult Note ---
<BranGary Jay - Last Filed: 08/15/16 08:36> Date of Encounter: 08/15/16 Time of Encounter: 08:36 Assessment and Plan (1) Gallstone pancreatitis Current Visit: Yes Status: Suspected Pt. with intermittent RUQ pain and mid epigastric pain with radiation to the back x 1 month. Associated with nausea and vomiting. Cholelithiasis seen on abd/pel CT GB u/s pending Initial Lipase was 245 without elevation of liver enzymes or bilirubin WBC: 8.9 She states she does not drink alcohol. Will check triglyceride level Her abdomen is very tender, especially in the mid-epigastric and RUQ region. She did have a positive maradiaga's sign. We will obtain an u/s of the gallbladder to better elucidate the gallbladder and cbd for any signs of dilation/irritation from gallstones. She may require a cholecystectomy to prevent further episodes of pancreatitis NPO, antiemetics, pain control, IVF NS@100ml/hr, GI prophylaxis, DVR prophylaxis History of Present Illness Consult date: 08/15/16 Reason for consult: gallstones Requesting physician: José Miguel Antonio History of present illness: Mrs. Mackenzie is a pleasant 26 yo F who presented to [facility] ED with persistent nausea/vomiting/abdominal pain. She has a hx significant for GERD and an exploratory laparoscopy for possible uterine cysts during which the uterus was released from the abdominal wall. Today she states she has been having recurrent nausea and vomiting for the past month. It is associated with mid epigastric abdominal pain. This is the first time she has been having these complaints. She states every few days over the course of the past month that she will have cramping epigastric pain that radiates to her back and it always associated with nausea and vomiting. She was seen in the ED on 08/03/16 for the same symptoms and was prescribed Carafate, but had no resolution of her symptoms. Past Med Surg Social Fam HX - Past Medical History Medical history: GERD Psychiatric history: no psych history - Past Surgical History Surgical History: non-contributory, other (uterus 01/2013) - Social History Smoking Status: Never smoker Smokeless Tobacco Status: No Alcohol use: none Drug use: none - Family History Grandmother Living Status: Hx Family Cardiac Disorders: No Hx Family Respiratory Disorders: Yes (lung cancer, copd) Hx Family Cancer: Yes (lung, aunt had lung cancer also-still living) Hx Family GI Disorders: No Hx Family Endocrine Disorder: No Hx Family Neuromuscular Disorders: No Hx Family Neurologic Disorders: No Hx Family HEENT Disorders: No Hx Family Autoimmune Disorders: No Medications and Allergies Sucralfate [Carafate] 1 gm PO QIDAC #30 tablet 08/03/16 [Rx] Cephalexin [Keflex] 500 mg PO TID #15 capsule 08/15/16 [Rx] Omeprazole [PriLOSEC] 20 mg PO DAILY 08/15/16 [History] Ondansetron HCl [Zofran] 4 mg PO [id number] PRN 08/15/16 [History] Ranitidine HCl [Zantac] 150 mg PO DAILY PRN 08/15/16 [History] Allergies sulfamethoxazole [From Bactrim] Allergy (Verified 08/14/16 21:19) Anaphylaxis trimethoprim [From Bactrim] Allergy (Verified 08/14/16 21:19) Anaphylaxis Review of Systems All systems PM: A 10-system review of systems was performed and is negative for pertinent findings except as documented above in the HPI. - Constitutional no chills, no night sweats - Cardiovascular no chest pain, no dyspnea, no rapid heart rate - Respiratory no dyspnea - Gastrointestinal abdominal pain, cramping, heartburn, nausea, vomiting, no diarrhea, no hematemesis, no hematochezia, no melena - Neurological no syncope General Surgery Exam Initial Vital Signs Temp Pulse Resp BP Pulse Ox 99 F 73 20 156/85 98 08/14/16 21:15 08/14/16 21:15 08/14/16 21:15 08/14/16 21:15 08/14/16 21:15 - General physical appearance well developed, well nourished, no distress - Neck trachea midline - Respiratory normal expansion, clear to auscultation - Cardiovascular Cardiovascular exam: Present: RRR, no murmurs/rubs/gallops - Abdomen Abdomen general surgery: Present: bowel sounds present, soft. Absent: guarding , rigid, peritoneal Abdominal Tenderness: Present: epigastic, RUQ - Integumentary Integumentary general surgery: Present: warm and dry - Neurologic Present: CN 2-12 grossly intact - Psychiatric Psychiatric general surgery: Present: A&Ox3 Exam Initial Vital Signs Temp Pulse Resp BP Pulse Ox 99 F 73 20 156/85 98 03/29/17 21:15 08/14/16 21:15 08/14/16 21:15 08/14/16 21:15 08/14/16 21:15 Results - Labs 08/14/16 22:24 08/15/16 03:55 Abnormal lab results Potassium 3.3 mEq/L (3.5-4.5) L 08/15/16 03:55 Chloride 110 mEq/L (98-109) H 08/15/16 03:55 Calcium 8.0 mg/dL (8.6-10.8) L 08/15/16 03:55 Globulin 3.6 g/dL (2.4-3.5) H 08/14/16 22:24 Ur Specific [place] 1.028 (1.010-1.025) H 08/14/16 21:00 Ur Leukocyte Esterase Small (Negative) H 08/14/16 21:00 Urine Microscopic WBC 5-15 per hpf (0-3) H 08/14/16 21:00 Ur Squamous Epith Cells Many per lpf (None-Few) H 08/14/16 21:00 Ur Culture Indicated? YES (NO) A 08/14/16 21:00 All other labs normal. Consult Discharge Plan - Plan Referrals: NO,PCP [Primary Care Provider] - <William Mcguire - Last Filed: 08/15/16 15:24> Date of Encounter: 08/15/16 Review of Systems All systems PM: A 10-system review of systems was performed and is negative for pertinent findings except as documented above in the HPI. General Surgery Exam Initial Vital Signs Temp Pulse Resp BP Pulse Ox 99 F 73 20 156/85 98 08/14/16 21:15 08/14/16 21:15 08/14/16 21:15 08/14/16 21:15 08/14/16 21:15 Exam Initial Vital Signs Temp Pulse Resp BP Pulse Ox 99 F 73 20 156/85 98 08/14/16 21:15 08/14/16 21:15 08/14/16 21:15 08/14/16 21:15 08/14/16 21:15 Results - Labs 08/14/16 22:24 08/15/16 03:55 Abnormal lab results Potassium 3.3 mEq/L (3.5-4.5) L 08/15/16 03:55 Chloride 110 mEq/L (98-109) H 08/15/16 03:55 Calcium 8.0 mg/dL (8.6-10.8) L 08/15/16 03:55 Albumin 3.3 g/dL (3.5-5.0) L 08/15/16 03:55 Ur Specific [place] 1.028 (1.010-1.025) H 08/14/16 21:00 Ur Leukocyte Esterase Small (Negative) H 08/14/16 21:00 Urine Microscopic WBC 5-15 per hpf (0-3) H 08/14/16 21:00 Ur Squamous Epith Cells Many per lpf (None-Few) H 08/14/16 21:00 Ur Culture Indicated? YES (NO) A 08/14/16 21:00 Diabetes panel 08/15/16 Range/Units 03:55 Sodium 140 (136-145) mEq/L Potassium 3.3 L (3.5-4.5) mEq/L Chloride 110 H (98-109) mEq/L Carbon Dioxide 23 (19-29) mEq/L BUN 11 (7-20) mg/dL Creatinine 0.63 (0.57-1.11) mg/dL Glucose 90 (70-99) mg/dL Calcium 8.0 L (8.6-10.8) mg/dL AST 16 (5-34) Units/L ALT 19 (0-55) Units/L Alkaline Phosphatase 88 (38-126) Units/L Albumin 3.3 L (3.5-5.0) g/dL Triglycerides 78 (< 150) mg/dL Calcium panel 08/15/16 Range/Units 03:55 Calcium 8.0 L (8.6-10.8) mg/dL Albumin 3.3 L (3.5-5.0) g/dL Pituitary panel 08/15/16 Range/Units 03:55 Sodium 140 (136-145) mEq/L Potassium 3.3 L (3.5-4.5) mEq/L Chloride 110 H (98-109) mEq/L Carbon Dioxide 23 (19-29) mEq/L BUN 11 (7-20) mg/dL Creatinine 0.63 (0.57-1.11) mg/dL Glucose 90 (70-99) mg/dL Calcium 8.0 L (8.6-10.8) mg/dL Adrenal panel 08/15/16 Range/Units 03:55 Sodium 140 (136-145) mEq/L Potassium 3.3 L (3.5-4.5) mEq/L Chloride 110 H (98-109) mEq/L Carbon Dioxide 23 (19-29) mEq/L BUN 11 (7-20) mg/dL Creatinine 0.63 (0.57-1.11) mg/dL Glucose 90 (70-99) mg/dL Calcium 8.0 L (8.6-10.8) mg/dL Total Bilirubin 0.5 (0.2-1.2) mg/dL AST 16 (5-34) Units/L ALT 19 (0-55) Units/L Alkaline Phosphatase 88 (38-126) Units/L Albumin 3.3 L (3.5-5.0) g/dL All other labs normal. - Attending Attestation I examined this patient and my medical decision-making was reviewed with the DRY PRIMER POWDER BLENDER/PA/Advanced Practice Nurse/Resident Physician. I agree with the documented findings, disposition and treatment plan as described except to the extent set forth below. The patient was seen and evaluated with the resident. She is admitted for recurrent abdominal pain associated with gallstone pancreatitis. I discussed the risks and benefits of laparoscopic cholecystectomy with her and she wishes to proceed. We will keep her nothing by mouth and proceed later today. William Mcguire MD FACS
[2016-08-15] MEDS ORDERED: Pantoprazole 40 MG VIAL IVP SCH (09:00)
[2016-08-15 10:02] LABS: Alanine Aminotransferase 19 Units/L (0-55); Albumin 3.3 g/dL (3.5-5.0); Albumin/Globulin Ratio 1.1 (1.1-2.2); Alkaline Phosphatase 88 Units/L (38-126); Amylase 95 Units/L (25-125); Aspartate Amino Transferase 16 Units/L (5-34); Bilirubin,Direct 0.3 mg/dL (0.0-0.5); Bilirubin,Indirect 0.2 mg/dL (0.0-1.2); Bilirubin,Total 0.5 mg/dL (0.2-1.2); Globulin 2.9 g/dL (2.4-3.5); Total Protein 6.2 g/dL (6.0-8.3); Triglycerides 78 mg/dL (< 150)
[2016-08-15] MEDS ORDERED: *HR* FentaNYL (PF) 100 MCG/2 ML VIAL ONE (16:23)
[2016-08-15] MEDS ORDERED: *HR* Midazolam HCl 2 MG/2 ML VIAL ONE (16:24)
[2016-08-15] MEDS ORDERED: *HR* Propofol 200 MG/20 ML VIAL IVP ONE (16:24)
[2016-08-15] MEDS ORDERED: *HR* Succinylcholine 200 MG/10 ML VIAL IVP ONE (16:27)
[2016-08-15] MEDS ORDERED: Lidocaine -MPF 2% 2 ML VIAL ONE (16:27)
--- NOTE | 2016-08-15 16:37 | Anesthesia Evaluation PreOp ---
Date of Encounter: 08/15/16 Time of Encounter: 16:35 - Past History Planned Operation: Lap cholecystectomy (gallstone pancreatitis) Cardiac History: Denies any Significant Hx Pulmonary History: Denies Any Significant HX INTERNAL COMBUSTION ENGINE ASSEMBLER History: Denies Any Significant HX Other Medical History: GERD, Other (gallstone pancreatitis) Anesthesia History: No Prior Anesthetic Complications Alcohol Use: none Drug use: none Medications and Allergies Sucralfate [Carafate] 1 gm PO QIDAC #30 tablet 08/03/16 [Rx] Cephalexin [Keflex] 500 mg PO TID #15 capsule 08/15/16 [Rx] Omeprazole [PriLOSEC] 20 mg PO DAILY 08/15/16 [History] Ondansetron HCl [Zofran] 4 mg PO [id number] PRN 08/15/16 [History] Ranitidine HCl [Zantac] 150 mg PO DAILY PRN 08/15/16 [History] Allergies sulfamethoxazole [From Bactrim] Allergy (Verified 08/14/16 21:19) Anaphylaxis trimethoprim [From Bactrim] Allergy (Verified 08/14/16 21:19) Anaphylaxis - Meds/Allergy Pre-op Review Medications Reviewed: Yes Allergies Reviewed: Yes Beta Blockers on Current Med List: No Anesthesia Results - Labs 08/14/16 22:24 08/15/16 03:55 Anesthesia Exam Last Vital Signs Temp 98.2 F 08/15/16 15:16 Pulse 52 08/15/16 15:16 Resp 14 08/15/16 15:16 BP 114/75 08/15/16 15:16 Pulse Ox 99 08/15/16 15:16 Weight: 101 kg NPO (# of Hours): >> 8 hrs - HEENT Pupil (Motor): Pupils equal, EOMI Mallampati: II Teeth: Normal Oral Opening: Greater than 3 - INTERNAL COMBUSTION ENGINE ASSEMBLER LOC: Oriented INTERNAL COMBUSTION ENGINE ASSEMBLER Motor: Normal RUE, Normal LUE, Normal RLE, Normal LLE, Normal Face INTERNAL COMBUSTION ENGINE ASSEMBLER Sensory: Normal: RUE, LUE, RLE, LLE, Face - Cardiac Rhythm: Regular Murmur: None - Pulmonary Breath Sounds: bilateral Clear Respiratory Effort: Symmetrical Anesthesia Assess/Plan ASA Score: 2 Modified Nicky Scale for Level of Consciousness: Cooperative, oriented, and tranquil Anesthetic Plan: General Monitoring Plan: Standard Monitors Recovery Plan: PACU
[2016-08-15] MEDS ORDERED: Lidocaine -MPF 4% 5 ML AMPUL ONE (16:50)
[2016-08-15] MEDS ORDERED: Neostigmine Methylsulfate 3 MG/3 ML SYRINGE ONE (16:56)
[2016-08-15] MEDS ORDERED: *HR* HYDROmorphone 2 MG/ML SYRINGE ONE (17:03)
[2016-08-15] MEDS ORDERED: CefOXitin 2,000 MG VIAL IVPB ONE (17:18)
[2016-08-15] MEDS ORDERED: Ondansetron 4 MG/2 ML VIAL ONE (17:41)
[2016-08-15] MEDS ORDERED: Dexamethasone 4 MG/ML VIAL ONE (17:41)
[2016-08-15] MEDS ORDERED: EPHEDrine 50 MG/ML VIAL ONE (17:46)
[2016-08-15] MEDS ORDERED: *HR* HYDROmorphone (PF) 1 MG/ML SYRINGE IVP PRN (17:57)
--- NOTE | 2016-08-15 18:23 | Operative Note ---
Date of procedure: 08/15/16 Pre-op diagnosis: Gallstone pancreatitis Post-op diagnosis: same Procedure: Laparoscopic cholecystectomy, cholangiogram Anesthesia: YOKASTA Surgeon: William Mcguire Estimated blood loss (cc): 20 Specimen: Gallbladder and contents Condition: stable Disposition: PACU Procedure in Detail: Laparoscopic cholecystectomy and intraoperative cholangiogram Operative procedure after informed consent and appropriate patient identification timeout the patient's take major operating suite and placed supine position given adequate general endotracheal anesthesia the abdomen is prepped and draped in sterile fashion utilizing ChloraPrep standard draping techniques timeout was taken patient is identified. I made a vertical midline incision below the umbilicus dissected down to level of fascia there are 2 traction stitches placed in the abdominal cavity was entered visually. A George trocar was placed in the abdomen and the abdomen was insufflated to 15 mmHg pressure CO2 the gallbladder was visualized. A placement 11 port in the subxiphoid area and 2 5 mm ports in the subcostal area. The gallbladder was grasped and elevated. A variety of blunt and sharp dissection techniques were used to isolate the cystic duct and cystic artery. The cystic artery was controlled with 2 surgical clips proximally and one distally and it was divided I placed a surgical clip on the neck the gallbladder and obtained an intraoperative cholangiogram using 10 mL of Isovue. Intraoperative cholangiogram was normal. The cholangiocatheter was removed and the cystic duct was controlled with 2 surgical clips proximally and was divided the gallbladder was removed from the gallbladder fossae using electrocautery. The gallbladder was removed through the #11 port site. I replaced the #11 port and irrigated with copious amounts of antibiotic containing solution. There is no evidence of bleeding or bile leak. All trochars were removed. Fascia was closed with 0 Vicryl skin with 2-0 and 4-0 Vicryl she tolerated the procedure well and was transferred to recovery in stable condition
--- NOTE | 2016-08-15 18:58 | Anesthesia Evaluation Post Op ---
Date of Encounter: 08/15/16 Time of Encounter: 18:58 - Vital Signs Vital Signs: Last Vital Signs Temp 98.4 F 08/15/16 18:33 Pulse 58 08/15/16 18:53 Resp 12 08/15/16 18:53 BP 123/62 08/15/16 18:53 Pulse Ox 94 L 08/15/16 18:53 - Lungs Lungs: Clear Ascult./Percussion - Airway Airway: Non-obstructed - Cardiovascular Regular Rate - Mental Status Mental Status: Alert & Oriented, Answers Appropriately - Pain Pain Scale: 2 - Nausea Vomiting Nausea Vomiting: Not Present - Hydration Hydration: NPO - Discharge PostOp Status: Transfer Patient to floor
--- NOTE | 2016-08-15 20:36 | Internal Med Progress Note ---
Date of Encounter: 08/15/16 Time of Encounter: 10:30 - Assessment and plan (1) Upper abdominal pain Current Visit: Yes Status: Acute Assessment and plan: Patient reports several week history of upper abdominal and right upper quadrant pain with radiation to the back, nausea, vomiting. Patient is 3 months . She has been seen in the past for this and told once that she had gastritis and was given Carafate. She said is not helping. Epigastric and right upper quadrant are tender to light palpation. Did not attempt Myers' s due to patient's obvious discomfort. Patient had a bladder ultrasound showing multiple calculi within the gallbladder, color wall is not upper limits of thickness. She did not have a sonographic Myers sign. Patient is seen by Dr. Macedo Patient was nothing by mouth Pain control IV fluids Surgery consult (2) Elevated lipase Current Visit: Yes Status: Acute Assessment and plan: Patient's initial lipase was 245 in the emergency department. It was within normal limits at 51 this morning. We will continue to monitor. (3) DVT prophylaxis Current Visit: Yes Status: Acute Assessment and plan: Patient is able to ambulate. (4) Cholelithiasis Current Visit: Yes Status: Acute Assessment and plan: He has multiple stones or gallbladder wall thickening. Patient will go to surgery today for cholecystectomy. Plan as above Qualifiers: Cholelithiasis location: gallbladder Cholecystitis presence: without cholecystitis Biliary obstruction: without biliary obstruction Qualified Code(s): K80.20 - Calculus of gallbladder without cholecystitis without obstruction - Time Spent With Patient less than 15 minutes - Subjective Interval history: Patient reports intermittent epigastric and right upper quadrant pain with radiation to her back, nausea vomiting for several weeks. Pain does become worse in relation to food. She was seen by Dr. Benavides today and will be taken to surgery for cholecystectomy today. Abdomen is tender to palpation right upper quadrant. Did not attempt Myers sign. Patient is getting IV antibiotics and IV fluids. Abdomen soft and rounded bowel sounds 4. Patient is about 3 months . - Constitutional Vitals: Temp Pulse Resp BP Pulse Ox 98.9 F 54 12 118/68 96 08/15/16 19:01 08/15/16 19:01 08/15/16 19:01 08/15/16 19:01 08/15/16 19:01 General appearance: Present: A&O X 3, pleasant, answers questions appropriately - Neck Neck exam general surgery: Present: normal inspection. Absent: lymphadenopathy , tenderness - Respiratory Respiratory exam: Present: CTAB. Absent: respiratory distress, rhonchi, stridor , wheezes - Cardiovascular Cardiovascular exam: Present: RRR, +S1, +S2. Absent: diastolic murmur, systolic murmur - GI/Abdominal GI/Abdominal exam: Present: guarding, normal bowel sounds, soft, tenderness - Extremities Exam Extremities exam: Present: normal capillary refill, normal inspection, warm, radial pulses palpable and symetrical. Absent: mottling, pedal edema, tenderness Internal Medicine: Result - Labs CBC & Chem 7: 08/14/16 22:24 08/15/16 03:55 Labs: BMP 08/15/16 03:55 Sodium 140 Potassium 3.3 L Chloride 110 H Carbon Dioxide 23 BUN 11 Creatinine 0.63 Glucose 90 Calcium 8.0 L Liver Function 08/15/16 Range/Units 03:55 Total Bilirubin 0.5 (0.2-1.2) mg/dL Direct Bilirubin 0.3 (0.0-0.5) mg/dL AST 16 (5-34) Units/L ALT 19 (0-55) Units/L Alkaline Phosphatase 88 (38-126) Units/L Albumin 3.3 L (3.5-5.0) g/dL - Impressions Impressions Gallbladder Ultrasound 08/15/16 09:30 IMPRESSION: No evidence of cholelithiasis or ancillary evidence of acute cholecystitis. D/ / Pavan Garcia MD / Pavan Garcia MD Interpreting Provider: Pavan Garcia MD Cholangiogram,Operative 08/15/16 17:50 IMPRESSION: Intraoperative cholangiogram without complication identified. D/ / Len Saldivar MD / Len Saldivar MD Interpreting Provider: Len Saldivar MD Abdomen/Pelvis CT 08/15/16 23:26 IMPRESSION: 1. No acute intra-abdominal or intrapelvic process. 2. Normal pancreas, without CT evidence of pancreatitis. 3. Cholelithiasis. D/ / Diogo Stallworth MD / Diogo Stallworth MD Interpreting Provider: Diogo Stallworth MD Consult Discharge Plan - Plan Referrals: Janette Aceves CNP [Advanced Practice Nurse] - 08/20/16 2:00 pm
[2016-08-15] MEDS: *HR* HYDROcodone/Acet 5/325 mg TABLET PO PRN (23:18)
[2016-08-16 06:10] LABS: Basophils % 0.3 %; Eosinophils % 0.1 %; Hematocrit 34.1 % (35.3-44.9); Hemoglobin 11.5 g/dL (11.5-15.4); Immature Granulocytes % 0.5 % (0-4); Lymphocytes # 1.3 K/mcL (0.6-4.6); Lymphocytes % 15.9 %; Mean Corpuscular HGB Conc 33.7 g/dL (31.6-35.5); Mean Corpuscular Hemoglobin 30.5 pg (28.0-33.3); Mean Corpuscular Volume 90.5 fL (83.0-100.0); Mean Platelet Volume 11.1 fL (9.4-12.4); Monocytes # 0.5 K/mcL (0.0-1.3); Monocytes % 6.7 %; Neutrophils # 6.1 K/mcL (1.6-8.9); Platelet Count 238 K/mcL (140-400); Red Blood Count 3.77 M/mcL (3.82-4.97); Red Cell Distribution Width 12.9 % (11.5-14.5); Segmented Neutrophils % 76.5 %
[2016-08-16 06:29] LABS: Bilirubin,Direct 0.2 mg/dL (0.0-0.5); Bilirubin,Indirect 0.1 mg/dL (0.0-1.2); Bilirubin,Total 0.3 mg/dL (0.2-1.2); Globulin 2.9 g/dL (2.4-3.5); Total Protein 5.9 g/dL (6.0-8.3)
[2016-08-16] MEDS: 0.9 % Sodium Chloride 1,000 ML IVC SCH (07:53)
[2016-08-16] MEDS: *HR* HYDROcodone/Acet 5/325 mg TABLET PO PRN (08:00)
[2016-08-16] MEDS ORDERED: Pantoprazole 40 MG VIAL IVP SCH (09:00)
--- NOTE | 2016-08-16 10:46 | General Surgery Progress Note ---
Date of Encounter: 08/16/16 Time of Encounter: 11:19 - Assessment and Plan (1) Gallstone pancreatitis Status: Resolved POD#1 Laparoscopic cholecystectomy, cholangiogram She tolerated the procedure well. Pt. reports some mild nausea this morning along with expected post-operative incisional pain. Will recheck pancreatic enzyme levels. If normalized, is OK for discharge. Labs currently pending. Subjective Patient reports: feels better, tolerating a regular diet Narrative: Patient seen and examined. Feeling well this am. POD#1 for laparoscopic cholecystectomy. Expected post-op incisional tenderness. No n/v/d. Afebrile WBC 7.9. Objective Vital Signs - Last 8 Hours Temp Pulse Resp BP Pulse Ox 08/16/16 08:02 98 08/16/16 07:12 98.2 F 64 20 119/71 98 08/16/16 03:26 97.4 F L 70 16 112/69 97 Intake and Output 08/15/16 08/16/16 08/16/16 23:59 07:59 15:59 Intake Total 1000 / 1000 Output Total 20 / 20 Balance -20 / -20 1000 / 1000 Intake: IV Fluids 1000 / 1000 0.9 % Sodium Chloride 1, 1000 / 1000 000 ML @ 100 mls/hr IVC . Q10H MELIZA Rx#:[id number] Output: Estimated Blood Loss 20 / 20 Other: Meal patient refused Percent of Meal Consumed 0% # Voids 2 Weight 98.384 kg Patient Weight 08/16/16 23:59 Weight 98.384 kg - General physical appearance well developed, well nourished, no distress - Eyes normal ocular movement - Neck Neck exam: trachea midline - Respiratory normal expansion, clear to auscultation - Cardiovascular Cardiovascular exam: Present: RRR, no murmurs/rubs/gallops - Abdomen Abdomen: Present: bowel sounds present, soft, tender (expected post-op incisional tenderness) - Neurologic CN 2-12 grossly intact - Psychiatric oriented to time, oriented to person, oriented to place - Labs 08/16/16 05:41 08/15/16 03:55 Diabetes panel 08/16/16 Range/Units 05:41 AST 35 H (5-34) Units/L ALT 36 (0-55) Units/L Alkaline Phosphatase 81 (38-126) Units/L Albumin 3.0 L (3.5-5.0) g/dL Calcium panel 08/16/16 Range/Units 05:41 Albumin 3.0 L (3.5-5.0) g/dL Adrenal panel 08/16/16 Range/Units 05:41 Total Bilirubin 0.3 (0.2-1.2) mg/dL AST 35 H (5-34) Units/L ALT 36 (0-55) Units/L Alkaline Phosphatase 81 (38-126) Units/L Albumin 3.0 L (3.5-5.0) g/dL Consult Discharge Plan - Plan Additional Instructions: You can shower but no tub bath for 2 weeks. Wash incisions with soap and water and pat dry daily No lifting/pushing/pulling greater than 15 lb. for a total of 2 weeks from the date of surgery No driving until off narcotics and able to safely react in the car May climb stairs Referrals: Janette Aceves CNP [Advanced Practice Nurse] - 08/20/16 2:00 pm Janette Lowery CNP [Advanced Practice Nurse] - 08/29/16 11:30 am Prescriptions: HYDROcodone/Acet 5/325 mg [[place] 5-325 mg] 1 tab PO Q4HR PRN #42 tablet PRN Reason: Moderate-severe Pain - Attending Attestation I examined this patient and my medical decision-making was reviewed with the ALCOHOL AND DRUG COUNSELOR/PA/Advanced Practice Nurse/Resident Physician. I agree with the documented findings, disposition and treatment plan as described except to the extent set forth below. The patient is seen and evaluated with the resident on morning rounds. She is stable from laparoscopic cholecystectomy and ready for discharge. William Mcguire MD FACS
--- NOTE | 2016-08-16 19:15 | Discharge Summary ---
Date of Encounter: 08/16/16 Time of Encounter: 12:00 - Discharge Diagnosis (1) Cholelithiasis Priority: Primary Status: Acute Comments: Patient had multiple stones in her gallbladder per ultrasound. Bile duct was not dilated and was within normal limits. He should have a cholangiogram during surgery. It did not identify any obstructions or difficulties. Patient had lap cholecystectomy yesterday. Her incisions are healing well and glued together. No drainage or redness or pus. Patient states her abdomen is sore from the surgery, however she is no longer having the same abdominal pain for which she was admitted. She has been cleared by surgery for discharge, her labs have returned to normal, no fever, vitals are within normal limits, no leukocytosis. Patient states that her nausea has resolved and denies need for pain medication or nausea medication for home. Qualifiers: Cholelithiasis location: gallbladder Cholecystitis presence: without cholecystitis Biliary obstruction: without biliary obstruction Qualified Code(s): K80.20 - Calculus of gallbladder without cholecystitis without obstruction (2) Upper abdominal pain Priority: Secondary Status: Acute Comments: Patient reports 3 month history of upper abdominal pain nausea and vomiting. She is 3 months . Liver enzymes were elevated first draw, back to baseline normal second draw. Patient is tender to palpation. She was admitted and given IV hydration and pain control. She was seen by Dr. Mcguire and taken to surgery for cholecystectomy yesterday. She says that she feels a lot better today in the original abdominal pain is gone, however now she is sore from the surgery. (3) Elevated lipase Priority: Secondary Status: Resolved Comments: He has has returned to level within normal limits now it is 12. Resolved (4) DVT prophylaxis Priority: Secondary Status: Acute Comments: Patient was ambulating and is at low risk. She did not Need chemical prophylaxis. - Discharge Medications Prescriptions: HYDROcodone/Acet 5/325 mg [[place] 5-325 mg] 1 tab PO Q4HR PRN #42 tablet PRN Reason: Moderate-severe Pain Home Medications: Sucralfate [Carafate] 1 gm PO QIDAC #30 tablet 08/03/16 [Rx] Cephalexin [Keflex] 500 mg PO TID #15 capsule 08/15/16 [Rx] Omeprazole [PriLOSEC] 20 mg PO DAILY 08/15/16 [History] Ondansetron HCl [Zofran] 4 mg PO [id number] PRN 08/15/16 [History] Ranitidine HCl [Zantac] 150 mg PO DAILY PRN 08/15/16 [History] HYDROcodone/Acet 5/325 mg [[place] 5-325 mg] 1 tab PO Q4HR PRN #42 tablet [Rx] Allergies/Adverse Reactions: Allergies sulfamethoxazole [From Bactrim] Allergy (Verified 08/14/16 21:19) Anaphylaxis trimethoprim [From Bactrim] Allergy (Verified 08/14/16 21:19) Anaphylaxis Procedures/tests Complete & Pending: Procedures Performed prior 72 hours Category Date Time Status GB ultrasound [US gall bladder] [US] Stat Exams 08/15/16 09:30 Completed Date of admission: 08/15/16 01:48 Primary care physician: PCP NO Consults: 08/15/16 04:49 Consult to Surgery [CONS] Routine Consulting Provider: [facility] Reason for Consult: Concern for recurrent gallstone pancreastitis Call Completed: No Discharging clinician: Yasmin Reyes Anticipated date of discharge: 08/16/16 - Patient Status Disposition: Home, Self-Care Condition: Good Functional capacity at discharge: independent ambulation Overall status at discharge: patient is back to baseline - Discharge Instructions Follow Up With: Janette Lowery CNP [Advanced Practice Nurse] - 08/29/16 11:30 am Janette Aceves CNP [Advanced Practice Nurse] - 08/20/16 2:00 pm Additional Instructions: You can shower but no tub bath for 2 weeks. Wash incisions with soap and water and pat dry daily No lifting/pushing/pulling greater than 15 lb. for a total of 2 weeks from the date of surgery No driving until off narcotics and able to safely react in the car May climb stairs - Diet and Activity Activity: resume usual activities as tolerated Diet: advance to your usual diet Hospital course: Ms. Mackenzie is a 26 year old female who reports approximately a three-month history of epigastric and right upper quadrant pain. She is also 3 months . She reports nausea and vomiting and worsening pain with eating. She was admitted for elevated liver enzymes which have returned to normal. She has remained pain-free without leukocytosis and normotensive throughout her stay. She had a laparoscopic cholecystectomy yesterday and today states that she has better. She is able to hold down fluids. Her incisions look good without drainage or redness. Wound care information was provided by surgery. He also reports description notes for antibiotics and [place] for home. She is stable for discharge. - Time Spent with Patient Total time spent providing and/or coordinating discharge services: - Constitutional Vitals: Temp Pulse Resp BP Pulse Ox 98.0 F 61 16 106/69 96 08/16/16 16:03 08/16/16 16:03 08/16/16 16:03 08/16/16 16:03 08/16/16 16:03 General appearance: Present: A&O X 3, pleasant, answers questions appropriately
[2016-08-16 19:51] VITALS: BP 123/75
== END 2016-08-16 20:30 | disposition home or self-care (01) ==
LOC: 3BNU 21:00 → EMEROO 21:00 → 3BNU 08-15 02:13
PROVIDERS: ADMIT Registered Nurse; ATTEND Registered Nurse